=== PATIENT | male | born 1975 | race Caucasian/White ===

== ENCOUNTER 2018-09-27 09:18 | Emergency (ER) | payer OTHER ==
[~2018-09-27 09:18] MED LIST: CYCL10TA29 PO; HYDR-653 PO; HYDR12.558 PO; LISI2.5T60 PO
--- NOTE | 2018-09-27 09:19 | ER Report ---
History and Physical Time Seen By MD: 09:19 HPI/ROS CHIEF COMPLAINT: Left index finger laceration HISTORY OF PRESENT ILLNESS: Patient is a 43-year-old male who was using a putty knife yesterday and cut the index finger of the left hand dorsal aspect over the proximal interphalangeal joint. This occurred at around 3 PM yesterday and patient tried to do home care. He states that he cleaned the wound with alcohol wipes and placed Neosporin and placed in a splint because it's overs jointed still actively bleeding. Allergies: Coded Allergies: No Known Drug Allergies (Unverified , 09/27/18) Home Meds Reported Medications [Test C] No Conflict Check, 50 MG IM QWEEK 09/27/18 Hydrochlorothiazide (Hydrochlorothiazide) 12.5 Mg Capsule, 12.5 MG PO DAILY 03/18/12 Lisinopril (Lisinopril) 2.5 Mg Tablet, 2.5 MG PO DAILY 03/18/12 Discontinued Scripts Hydrocodone Bit/Acetaminophen (NORCO 5-325 TABLET) 1 Each Tablet, 1 EACH PO Q6- 8H, #20 Prov:ERIC PARK DO 01/06/14 Cyclobenzaprine Hcl (CYCLOBENZAPRINE HCL) 10 Mg Tablet, 10 MG PO TID, #20 TAB TAKE 1 TABLET BY MOUTH THREE TIMES A DAY Prov:ERIC PARK DO 01/06/14 Past Medical/Surgical History Noncontributory towards his chief complaint Hx Smoking: No Smoking Status: Never Smoker Constitutional Vital Sign - Last 24 Hours 09/27/18 09:23 Temp 97.7 Pulse 75 Resp 12 B/P (MAP) 159/85 Pulse Ox 95 O2 Delivery Room Air Physical Exam Examination of the Left hand reveals no acute deformity. The patient is able to give a thumbs up sign, is able to make an okay sign, and is able to AB duct the fingers. Sensation is intact over the dorsal 1st web space, the volar aspect of the 2nd finger, and the volar aspect of the 5th finger. Capillary refill is brisk. Examination of the left index finger reveals a 1.5 cm laceration over the PIP joint. Patient has full extension of the finger with good strength against resistance. There is no signs of infection including erythema or purulent discharge. Medical Decision Making ED Course/Re-evaluation ED Course 09/27/2018 9:29:49 am plan at this time will be topical let. Patient's immunization status is up-to-date. I will place sutures for primary closure give precautions in terms of infection and placed patient on prophylactic Keflex for 5 days. Procedure: Laceration repair. Verbal consent was obtained from the patient. The 0.5 cm laceration on the left index finger was anesthetized in the usual fashion. The wound was cleansed, draped and explored to its base with a gloved finger. There were no deep structures involved. No tendon injury was identified. The wound was repaired with 3 single interrupted 5-0 nylon sutures. The wound repair was simple. The procedure was performed by myself. Decision to Disposition Date: Sep 27, 2018 Decision to Disposition Time: 10:00 Depart Departure Latest Vital Signs Vital Signs Date Time Temp Pulse Resp B/P (MAP) Pulse Ox O2 Delivery O2 Flow Rate FiO2 09/27/18 09:23 97.7 75 12 159/85 95 Room Air Impression: Primary Impression: Finger laceration Condition: Improved Disposition: HOME OR SELF-CARE Referrals: [facility] [employer] (PCP) Follow-up in 7-10 days for suture removal Patient Instructions: Finger Laceration (ED) Problem Qualifiers Primary Impression: Finger laceration Encounter type: initial encounter Finger: index finger Damage to nail status: without damage Foreign body presence: without foreign body Laterality: left Qualified Codes: S61.211A - Laceration without foreign body of left index finger without damage to nail, initial encounter CHAPARRO SHAH MD Sep 27, 2018 09:19
[2018-09-27] MEDS ORDERED: [UNRECOGNIZED DRUG - REMARK] IM (09:26)
[2018-09-27] MEDS ORDERED: TETRACAIN/EPI/LIDO GEL 3ML SYR TP ONE (09:30)
[2018-09-27 10:00] VITALS: BP 137/106
== END 2018-09-27 10:09 | disposition home or self-care (01) ==
LOC: ER 09:28
DX: S61.211A Laceration without foreign body of left index finger without damage to nail, initial encounter (principal); W26.0XXA Contact with knife, initial encounter
CPT/HCPCS: 99283